=== PATIENT | male | born 1945 | race Caucasian/White ===

== ENCOUNTER 2016-03-22 15:39 | Observation (INO) | payer OTHER ==
--- NOTE | 2016-03-22 15:50 | EDPHY ---
H & P Stated Complaint: Neck feels tight today;radiating into L jaw HPI/ROS: HPI CHIEF COMPLAINT: Chest pain, neck pain HISTORY OF PRESENT ILLNESS: This patient is a 71-year-old male significant past medical history for IBS no cardiac or history of stroke, presents to the emergency room he is visiting from out of town in [place] he has been in [place] for months visiting his sisters, presents emergency room with sudden onset of discomfort in his chest and discomfort in his neck and jaw. He describes a dull ache that came on suddenly in his bilateral circumferential neck pain, no trauma, not worse with neck movement, describes as an achy dull pain that radiated around his neck up to his jaw and then into his chest anteriorly midline, denies back pain, arm pain, nausea, diaphoresis, vomiting or abdominal pain. He states the pain has been there for an hour and 10 minutes he was quite severe when it 1st happened however now is almost resolved. He tells me his pain is 1/10. Past Medical History: IBS Past Surgical History: tonsillectomy, small bowel resection Social History: history of tobacco use and cigar use, Daily alcohol use, drinks vodka, denies illicit drugs Family History: noncontributory ROS REVIEW OF SYSTEMS: A comprehensive 10 point review of systems is otherwise negative aside from elements mentioned in the history of present illness. Exam Constitutional triage nursing summary reviewed, vital signs reviewed, awake/ alert. Eyes normal conjunctivae and sclera, EOMI, PERRLA. HENT normal inspection, atraumatic, moist mucus membranes, no epistaxis, neck supple/ no meningismus, no raccoon eyes. Respiratory clear to auscultation bilaterally, normal breath sounds, no respiratory distress, no wheezing. Cardiovascular rate normal, regular rhythm, no murmur, no edema, distal pulses normal. Gastrointestinal soft, non-tender, no rebound, no guarding, normal bowel sounds, no distension, no pulsatile mass. Genitourinary no CVA tenderness. Musculoskeletal no midline vertebral tenderness, full range of motion, no calf swelling, no tenderness of extremities, no meningismus, good pulses, neurovascularly intact. Skin pink, warm, & dry, no rash, skin atraumatic. Neurologic awake, alert and oriented x 3, AAOx3, moves all 4 extremities equally, motor intact, sensory intact, CN II-XII intact, normal cerebellar, normal vision, normal speech. Psychiatric normal mood/affect. Heme/Lymph/Immune no lymphadenopathy. Differential diagnosis includes but is not limited to: ACS, atypical chest pain , pneumothorax, pneumonia, pulmonary embolism, aortic dissection, congestive heart failure, tumor, musculoskeletal pain, esophageal pain, GERD, peptic ulcer disease, pancreatitis Medical Decision Making: this patient will have a EKG, an IV will be established will obtain blood work including cardiac markers, patient had a chest x-ray, full-dose aspirin and nitroglycerin to see if this improves his pain. Patient have an EKG, most likely patient will need a CT scan of his chest and pelvis to rule out aortic dissection given his complaint of sudden onset neck pain, chest pain. Re-evaluation: EKG interpretation by me on record in [employer] system. Impression time of EKG , this is sinus rhythm rate of 53, borderline T-wave abnormality in lead 3, AVF, otherwise no ST elevation, ST depression or otherwise signs of acute ischemia. CT scan of the Chest abdomen pelvis with IV contrast for aortic dissection The results of the study are negative for dissection. The study was read by Dr. Espinal. I viewed the images myself on the PACS system. 2030: At this time patient is re-evaluated he has no chest pain or shortness of breath or neck pain. His CT angiogram of the chest and pelvis for aortic dissection is negative. His EKG does have isolated T-wave abnormalities lead 3 and AVF nonspecific. Otherwise unremarkable. Troponin is negative. Due to the patient's chest discomfort and neck pain I will admit the patient to the hospital service for further ACS evaluation and rule out. patient agrees with this plan. My plan would be for serial enzymes echocardiogram and stress test. 2050: spoke with Dr. Reddy the hospital service who agrees to admit this patient. Source: Patient - Personal History Current Tetanus Diphtheria and Acellular Pertussis (TDAP): Yes - Medical/Surgical History Other PMH: IBS - Social History Smoking Status: Former smoker Constitutional: Initial Vital Signs Temperature (C) 36.5 C 03/22/16 15:41 Heart Rate 62 03/22/16 15:41 Respiratory Rate 18 03/22/16 15:41 Blood Pressure 173/91 H 03/22/16 15:41 O2 Sat (%) 97 03/22/16 15:41 O2 Delivery Mode Room Air O2 (L/minute) 2 Allergies/Adverse Reactions: Penicillins Allergy (Unknown, Verified 03/22/16 15:46) as kid Sulfa (Sulfonamide Antibiotics) Allergy (Unknown, Verified 03/22/16 15:47) as kid Home Medications: Medication Instructions Recorded Cetirizine [ZyrTEC 10 mg (*)] 10 mg PO DAILY 03/22/16 FLUoxetine [Prozac 20 MG (*)] 20 mg PO DAILY 03/22/16 Diazepam [Valium 5 MG (*)] 5 mg PO TID PRN #15 tab 03/23/16 Medical Decision Making - Data Points Laboratory Results: Laboratory Results 03/22/16 15:53 03/22/16 17:20 Medications Given: Discontinued Medications Aspirin (Aspirin) 324 mg PO EDNOW ONE Stop: 03/22/16 15:54 Last Admin: 03/22/16 16:14 Dose: 324 mg Cetirizine HCl (Zyrtec) 10 mg PO DAILY KRISTIAN Stop: 09/19/16 08:59 Last Admin: 03/23/16 11:55 Dose: Not Given Fluoxetine HCl (Prozac) 20 mg PO DAILY KRISTIAN Stop: 09/19/16 08:59 Last Admin: 03/23/16 11:56 Dose: Not Given Sodium Chloride (Ns) 1,000 mls @ 0 mls/hr IV ONCE ONE PRN Reason: As Directed Stop: 03/22/16 15:54 Last Admin: 03/22/16 16:28 Dose: 1,000 mls Nitroglycerin (Nitrostat) 0.4 mg SL EDNOW ONE Stop: 03/22/16 16:08 Last Admin: 03/22/16 16:30 Dose: 0.4 mg Departure - [facility] Clinical Impression: Chest pain Qualifiers: Chest pain type: unspecified Qualifier Code: (R07.9) Chest pain, unspecified Condition: Fair
[2016-03-22] MEDS ORDERED: ASPIRIN 81 MG CHEWABLE TAB PO ONE (15:53)
[2016-03-22] MEDS ORDERED: NS 1,000 ML IV ONE (15:53)
--- NOTE | 2016-03-22 15:56 | CPEKG ---
Heart Rate: 53 RR Interval: 1132 P-R Interval: 188 QRSD Interval: 104 QT Interval: 448 QTC Interval: 421 P [place]: 62 QRS [place]: -8 T Wave [place]: 0 EKG Severity - BORDERLINE ECG - EKG Impression: SINUS RHYTHM EKG Impression: BORDERLINE T ABNORMALITIES, INFERIOR LEADS Electronically Signed By: Jordon Clifton 22-Mar-2016 20:16:23
[2016-03-22] MEDS ORDERED: NITROGLYCERIN 0.4 MG BTL SL ONE (16:07)
[2016-03-22 16:09] LABS: % IMMATURE GRANULYOCYTES 0.3 % (0.0-1.1); ABSOLUTE IMMATURE GRANULOCYTES 0.02 10^3/uL (0.00-0.10); ADD DIFF? NO; ADD MORPH? NO; ADD SCAN? NO; ATYPICAL LYMPHOCYTE FLAG 10 (0-99); FRAGMENT RBC FLAG 0 (0-99); HEMATOCRIT 46.5 % (40.0-51.0); LEFT SHIFT FLG 0 (0-99); LIPEMIA HEMOLYSIS FLAG 90 (0-99); MEAN CELL HEMOGLOBIN 32.9 pg (27.9-34.1); MEAN CELL HEMOGLOBIN CONCENTR. 34.4 g/dL (32.4-36.7); MEAN CELL VOLUME 95.5 fL (81.5-99.8); MEAN PLATELET VOLUME 9.9 fL (8.7-11.7); PLATELET CLUMPS FLAG 10 (0-99); PLATELET COUNT 322 10^3/uL (150-400); RED BLOOD CELL COUNT 4.87 10^6/uL (4.40-6.38); RED CELL DISTRIBUTION WIDTH 12.3 % (11.5-15.2)
[2016-03-22 16:18] LABS: PROTIME(PATIENT) 13.1 SEC (12.0-15.0)
--- NOTE | 2016-03-22 16:31 | DX ---
Portable chest - March 22, 2016, at 1614 hours History: Chest pain. Comparison: None. Findings: Cardiac silhouette is within normal range. No pneumonia, congestive heart failure, pleura l effusion, or pneumothorax. Impression: No acute pulmonary disease.
[2016-03-22 17:58] LABS: ALANINE AMINOTRANSFERASE 41 IU/L (21-72); ALBUMIN 3.4 g/dL (3.5-5.0); ALKALINE PHOSPHATASE 56 IU/L (38-126); ANION GAP 10 mEq/L (8-16); ASPARTATE AMINOTRANSFERASE 24 IU/L (17-59); BILIRUBIN,TOTAL 0.6 mg/dL (0.1-1.4); BILIRUBIN-CONJUGATED 0.5 mg/dL (0.0-0.5); BILIRUBIN-UNCONJUGATED 0.1 mg/dL (0.0-1.1); CALCIUM 8.4 mg/dL (8.5-10.4); CARBON DIOXIDE 25 mEq/l (22-31); CHLORIDE 103 mEq/L (97-110); CREATININE 1.1 mg/dL (0.7-1.3); GLOMERULAR FILTRATION RATE > 60; GLUCOSE 93 mg/dL (70-100); MAGNESIUM 1.8 mg/dL (1.6-2.3); POTASSIUM 3.9 mEq/L (3.5-5.2); SODIUM 138 mEq/L (134-144); TOTAL PROTEIN 6.5 g/dL (6.3-8.2)
[2016-03-22] MEDS ORDERED: IOPAMIDOL (ISOVUE 370) 100 ML BTL IV ONE (18:01)
[2016-03-22 18:10] LABS: CREATINE KINASE-MB FRACTION 2.96 ng/mL (0-3.19); TROPONIN I < 0.012 ng/mL (0-0.034)
--- NOTE | 2016-03-22 18:56 | CT ---
CT Chest Angiogram March 22, 2016 Indication: Neck and back pain. Evaluate for aortic dissection. Technique: Thinly collimated multidetector helical CT imaging was performed through the chest while 90 mL of Isovue-370 were injected intravenously without complication. The images were then transferr ed to an independent workstation where multiplanar reconstructions were performed. Dose reduction marilee hniques were utilized. Findings CT Chest Angiogram: The thoracic aorta is normal caliber and contour. No intimal hematoma, dissection , or penetrating ulcer. The pulmonary arterial system is well opacified. No evidence of acute or lokie engineer troy thrombopulmonary embolic disease. CT Chest: The lungs are clear with minimal posterior dependent atelectasis. No pneumothorax or edema. Airway is clear. The heart size is normal. No pericardial or pleural effusion. No lymphadenopathy or mass throughout t he axilla, mediastinum, or pulmonary den. The imaged portions of the neck and thoracic inlet are nor mal. Diffuse idiopathic skeletal hyperostosis is present throughout the thoracic spine evidenced by flowin g anterior syndesmophytes. No fracture or bone lesion. Impression: 1. Normal caliber aorta. No dissection or penetrating ulcer. 2. No explanation for chest and neck pain. 3. No pneumothorax or pericardial effusion. 4. Benign diffuse idiopathic skeletal hyperostosis. No fracture or bone lesion. Comment: The results were discussed with Dr. Clive Daniel at 6:40 p.m. on March 22, 2016.
--- NOTE | 2016-03-22 19:08 | CT ---
CT Angiogram of the Abdomen and Pelvis With Contrast March 22, 2016 Indication: Chest and neck pain. Evaluate for aortic dissection. Technique: The abdomen and pelvis were scanned with 1.5 mm thick helically acquired slices during art erial phase following uneventful intravenous administration of 90 mL Isovue-370. Dose reduction techn iques were utilized. Findings: The abdominal aorta is normal caliber. No aortic dissection or aneurysm. The infrarenal ab dominal aorta has moderate eccentric noncalcified and calcified atheroma. The celiac trunk, superior mesenteric artery, and inferior mesenteric artery are all widely patent. The right kidney is fed by a single renal artery. The left kidney is fed by three renal arteries off the aorta. The renal arterie s are all widely patent. Bilateral common iliac arteries are minimally tortuous and minimally ectatic with minimal calcified plaque. No flow-limiting stenosis. No pneumoperitoneum, free fluid, lymphadenopathy, or mass. The liver, spleen, pancreas, kidneys, and contracted gallbladder have expected arterial phase-type en hancement. The adrenal glands are normal. Bowel pattern is normal. A suture line in the left lower qu adrant along the rectosigmoid distribution is unremarkable. No bowel obstruction. Mild degenerative disk disease is present at L3-L4, L4-L5, and L5-S1. Grade 1 anterolisthesis of L3 o n L4 results in moderate bilateral neural foraminal stenosis. Facet hypertrophy and uncovertebral spu rs result in moderate severe bilateral neural foraminal stenosis at L4-L5. Impressions 1. No aortic aneurysm or dissection. 2. Mild atherosclerotic plaque. Widely patent visceral arteries. 3. No localized intraabdominal inflammatory process. Comment: Results were discussed with Dr. Clive Daniel at 6:40 p.m. on March 22, 2016.
[2016-03-22] MEDS ORDERED: NITROGLYCERIN 0.4 MG BTL SL PRN (23:41)
--- NOTE | 2016-03-23 00:07 | CPEKG ---
Heart Rate: 44 RR Interval: 1364 P-R Interval: 212 QRSD Interval: 110 QT Interval: 472 QTC Interval: 404 P [place]: 58 QRS [place]: -1 T Wave [place]: -9 EKG Severity - ABNORMAL ECG - EKG Impression: SINUS BRADYCARDIA EKG Impression: NONSPECIFIC INTRAVENTRICULAR CONDUCTION DELAY Electronically Signed By: John Pennington 23-Mar-2016 09:12:59
--- NOTE | 2016-03-23 05:29 | PDGENHP ---
History and Physical - Chief Complaint chest pain - History of Present Illness Patient is a 71-year-old male with a history of eczema and IBS who presents to the ED with complaint of tightness in his neck radiating to his chest. Patient states symptoms started on day of presentation in the late afternoon. He describes it as a soreness/tightness in his neck that radiated into his left chest, was constant but would intensify it times, and was associated with sensation of lightheadedness. Denies any palpitations, shortness of breath, nausea, diaphoresis. He has never experienced this before. If he denies any recent strain or physical exertion to neck. Also denies any headache. He has never had a stress test On arrival to the ED patient is afebrile and hemodynamically stable, although slightly hypertensive. Initial workup including CBC BMP and troponin were unremarkable. EKG showed normal sinus rhythm without evidence of ischemia. He was given aspirin and nitro and patient reports symptoms resolved. He was then admitted to the hospital service for further management History Information - Allergies/Home Medication List Allergies/Adverse Reactions: Penicillins Allergy (Unknown, Verified 03/22/16 15:46) as kid Sulfa (Sulfonamide Antibiotics) Allergy (Unknown, Verified 03/22/16 15:47) as kid Home Medications: Cetirizine [ZyrTEC 10 mg (*)] 10 mg PO DAILY 03/22/16 [Last Taken 03/21/16] FLUoxetine [Prozac 20 MG (*)] 20 mg PO DAILY 03/22/16 [Last Taken 03/22/16] I have personally reviewed and updated: family history, medical history, social history, surgical history - Past Medical History Additional medical history: Eczema. IBS, constipation type - Surgical History Additional surgical history: Orthopedic surgeries. Large bowel resection - Family History Additional family history: Father: CAD - Social History Smoking Status: Former smoker (Former 20 pack year history, also smoked daily cigar until about 1 month ago) Alcohol Use: Occasionally (Patient has 1-2 vodka drinks nightly) Drug Use: None Additional social history: Patient retired, was in sales. Lives with Review of Systems ROS: 10pt was reviewed & negative except for what was stated in HPI & below Physical Exam Temp Pulse Resp BP Pulse Ox 36.6 C 52 L 14 126/70 H 91 L 03/22/16 21:34 03/22/16 21:34 01/03/17 21:34 03/22/16 21:34 03/22/16 21:34 Constitutional: no apparent distress, appears nourished, not in pain Eyes: PERRL, anicteric sclera, EOMI Ears, Nose, Mouth, Throat: moist mucous membranes, hearing normal, ears appear normal, no oral mucosal ulcers Cardiovascular: regular rate and rhythym, no murmur, rub, or gallop, pulses symmetric bilaterally, No JVD, No edema Peripheral Pulses: 2+: dorsalis-pedis (R), dorsalis-pedis (L) Respiratory: no respiratory distress, no rales or rhonchi, clear to auscultation Gastrointestinal: normoactive bowel sounds, soft, non-tender abdomen, no palpable masses Genitourinary: no bladder fullness, no bladder tenderness Skin: warm, normal color, no rashes or abrasions, no fluctuance, no induration, No mottled Musculoskeletal: full muscle strength, no muscle tenderness, normal joint ROM, no joint effusions Neurologic: AAOx3, sensation intact bilaterally, CN II-XII Intact, No weakness, No numbness Psychiatric: interacting appropriately, not anxious, not encephalopathic, thought process linear Lab Data & Imaging Review 03/22/16 15:53 03/22/16 17:20 WBC 7.97 10^3/uL (3.80-9.50) 03/22/16 15:53 RBC 4.87 10^6/uL (4.40-6.38) 03/22/16 15:53 Hgb 16.0 g/dL (13.7-17.5) 03/22/16 15:53 Hct 46.5 % (40.0-51.0) 03/22/16 15:53 MCV 95.5 fL (81.5-99.8) 03/22/16 15:53 MCH 32.9 pg (27.9-34.1) 03/22/16 15:53 MCHC 34.4 g/dL (32.4-36.7) 03/22/16 15:53 RDW 12.3 % (11.5-15.2) 03/22/16 15:53 Plt Count 322 10^3/uL (150-400) 03/22/16 15:53 MPV 9.9 fL (8.7-11.7) 03/22/16 15:53 Neut % (Auto) 53.2 % (39.3-74.2) 03/22/16 15:53 Lymph % (Auto) 30.5 % (15.0-45.0) 03/22/16 15:53 [place] % (Auto) 11.4 % (4.5-13.0) 03/22/16 15:53 Eos % (Auto) 3.6 % (0.6-7.6) 03/22/16 15:53 Baso % (Auto) 1.0 % (0.3-1.7) 03/22/16 15:53 Nucleat RBC Rel Count 0.0 % (0.0-0.2) 03/22/16 15:53 Absolute Neuts (auto) 4.24 10^3/uL (1.70-6.50) 03/22/16 15:53 Absolute Lymphs (auto) 2.43 10^3/uL (1.00-3.00) 03/22/16 15:53 Absolute Monos (auto) 0.91 10^3/uL (0.30-0.80) H 03/22/16 15:53 Absolute Eos (auto) 0.29 10^3/uL (0.03-0.40) 03/22/16 15:53 Absolute Basos (auto) 0.08 10^3/uL (0.02-0.10) 03/22/16 15:53 Absolute Nucleated RBC 0.00 10^3/uL (0-0.01) 03/22/16 15:53 Immature Gran % 0.3 % (0.0-1.1) 03/22/16 15:53 Immature Gran # 0.02 10^3/uL (0.00-0.10) 03/22/16 15:53 PT 13.1 SEC (12.0-15.0) 03/22/16 15:53 INR 1.00 (0.83-1.16) 03/22/16 15:53 APTT 26.0 SEC (23.0-38.0) 03/22/16 15:53 Turbidity REJ 03/22/16 16:49 Sodium 138 mEq/L (134-144) 03/22/16 17:20 Potassium 3.9 mEq/L (3.5-5.2) 03/22/16 17:20 Chloride 103 mEq/L (97-110) 03/22/16 17:20 Carbon Dioxide 25 mEq/l (22-31) 03/22/16 17:20 Anion Gap 10 mEq/L (8-16) 03/22/16 17:20 BUN 31 mg/dL (7-23) H 03/22/16 17:20 Creatinine 1.1 mg/dL (0.7-1.3) 03/22/16 17:20 Estimated GFR > 60 03/22/16 17:20 Glucose 93 mg/dL (70-100) 03/22/16 17:20 Calcium 8.4 mg/dL (8.5-10.4) L 03/22/16 17:20 Magnesium 1.8 mg/dL (1.6-2.3) 03/22/16 17:20 Total Bilirubin 0.6 mg/dL (0.1-1.4) 03/22/16 17:20 Conjugated Bilirubin 0.5 mg/dL (0.0-0.5) 03/22/16 17:20 Unconjugated Bilirubin 0.1 mg/dL (0.0-1.1) 03/22/16 17:20 AST 24 IU/L (17-59) 03/22/16 17:20 ALT 41 IU/L (21-72) 03/22/16 17:20 Alkaline Phosphatase 56 IU/L (38-126) 03/22/16 17:20 Creatine Kinase 79 IU/L (0-224) 03/22/16 17:20 CK-MB (CK-2) Fraction 2.96 ng/mL (0-3.19) 03/22/16 17:20 Troponin I < 0.012 ng/mL (0-0.034) 03/23/16 00:10 NT-Pro-B Natriuret Pep 55 pg/mL (0-125) 03/22/16 17:20 Total Protein 6.5 g/dL (6.3-8.2) 03/22/16 17:20 Albumin 3.4 g/dL (3.5-5.0) L 03/22/16 17:20 Lipase 110.0 IU/L (23-300) 03/22/16 17:20 Specimen Hemolysis REJ 03/22/16 16:49 Visualized and Interpreted Chest x-ray results: Yes Chest X-Ray results: no infiltrate, normal Visualized and Interpreted imaging results: Yes Interpretation: CT angio chest/abdomen and pelvis: No evidence of aortic dissection, aneurysm or PE Visualized and Interpreted EKG results: Yes EKG Interpretation: Positive for: normal sinsus rhythm (Lead 3 T-wave inversion) Assessment & Plan Assessment: Patient is a 71-year-old male with history of eczema and IBS who presents to the ED complaining of left neck and chest pain. Plan: # chest pain ED investigations revealed normal CT angio of chest/abdomen. Nonischemic EKG. Negative troponin. Patient's risk factors include family history of CAD and positive tobacco history. He has never previously had any cardiac workup. -trend troponins, serial EKGs -if above negative, performed exercise stress for risk stratification # IBS Patient reports symptoms are controlled with fluoxetine and a daily enema. Can continue this while inpatient # dispo: observe in [facility] for chest pain Full code
[2016-03-23 05:34] VITALS: TEMP 97.6
[2016-03-23 07:52] VITALS: BP 124/72; PULSE 52; RESP 18; O2SAT 92
[2016-03-23] MEDS ORDERED: CETIRIZINE 10 MG TAB PO SCH (09:00)
[2016-03-23] MEDS ORDERED: FLUoxetine 20 MG CAP PO SCH (09:00)
--- NOTE | 2016-03-23 11:09 | PDDCSUM ---
Discharge Summary Discharge Summary: Dates of service 03/22/16-03/23/16 Hospital course by problem: # chest pain: cta/abd pelvis CT as well as stress test all negative. No recurrent pain. Do not think that this pain is cardiac in nature. Not hypoxic. # neck pain: suspect this was msk in nature, will give short course of diazepam for likely muscular spasm # hx of IBS/eczema: continue op mgmt Reviewed care plan with patient and his sister present at bedside Dc home
--- NOTE | 2016-03-23 11:18 | CPR ---
[f rep st] NONINVASIVE CARDIAC PROCEDURE REPORT DATE OF PROCEDURE: 03/23/2016 PROCEDURE: Treadmill stress test REASON FOR TEST: Neck pain. This is a treadmill stress test ordered by hospitalist, Demetria Reddy MD. FINDINGS: Resting EKG shows a sinus bradycardia with a rate of 54. No ischemic changes noted. Ante rior late R-wave progression noted. No arrhythmias. Blood pressure 130/78, resting heart rate 57. He is asymptomatic. TREADMILL PORTION: He was exercised according to the Bladimir protocol for a total of 10 minutes 19 sec onds. He reached a maximal MET level of 10.9, maximal blood pressure 214/92, max heart rate 153, whi ch was maximal for his age. There were no EKG changes. At peak exercise, his oxygen saturation was 88%, his maximal blood pressure was 214/92. He had a very slight sensation in his neck rating at 1/1 0 with peak exertion. RECOVERY: He did spontaneously recover. His heart rate came down to 91, blood pressure down to 180/ 82, final blood pressure 138/80. There were no EKG changes. He fully recovered within 3 minutes. O xygen saturation progressively went up to 96% in recovery. At this time, he currently is stable to r eturn to his room. This is a normal treadmill stress test. /[id number]/MODL
== END 2016-03-23 11:57 | disposition home or self-care (01) ==
LOC: F1N 21:23
PROVIDERS: ADMIT Internal Medicine; ATTEND Internal Medicine
DX: R07.9 Chest pain, unspecified (principal); M54.2 Cervicalgia; K58.9 Irritable bowel syndrome, unspecified; L30.9 Dermatitis, unspecified; Z87.891 Personal history of nicotine dependence; Z88.0 Allergy status to penicillin; Z88.2 Allergy status to sulfonamides
CPT/HCPCS: 71010; 71275; 74174; 93005; 93017; 96360; 99285; G0378; Q9967